=== PATIENT | male | born 1965 | race Caucasian/White ===

== ENCOUNTER 2019-02-02 13:31 | Emergency (ER) | payer OTHER ==
[~2019-02-02] VITALS: Ht 172.7 cm; Wt 100.0 kg
--- NOTE | 2019-02-02 13:33 | NUR ---
NO ANSWER IN LOBBY
[2019-02-02 13:37] VITALS: BP 126/79
--- NOTE | 2019-02-02 14:19 | NUR ---
BREAK RN: PT LAYING ON GURNEY AWAKE & CALM, RESPONDS TO STAFF APPROP, NAD, NO NEEDS AT THIS TIME, CALL LIGHT WITHIN REACH.
--- NOTE | 2019-02-02 14:30 | NUR ---
Patient given discharge instructions and Rx, they have confirmed that they understand the instructions. Patient ambulatory with steady gait.
== END 2019-02-02 14:32 | disposition home or self-care (01) ==
LOC: ED 14:21
DX: S00.461A Insect bite (nonvenomous) of right ear, initial encounter (principal); W57.XXXA Bitten or stung by nonvenomous insect and other nonvenomous arthropods, initial encounter; Y93.89 Activity, other specified; Y92.89 Other specified places as the place of occurrence of the external cause; Y99.8 Other external cause status
CPT/HCPCS: 99283